=== PATIENT | female | born 1950 | race Caucasian/White ===

== ENCOUNTER → 2016-07-27 | Outpatient (CLI) | payer MEDICARE, MEDICAID ==
[~2016-07-27] MED LIST: CALC-794 PO; PANT40TA2 PO; POTA2TAB15 PO; SUCR1TAB36 PO
--- OUTSIDE RECORDS SUMMARY | 2016-07-27 10:58 | XMS REPORT | Continuity of Care Document ---
Author Author [facility] Organization [facility] Address Unknown Phone Unavailable Care Team Providers Care Central Supply Technician Name Role Phone PCP Unavailable Source Comments Some departments are not documenting in the electronic medical record. If you do not see the information that you expected, contact Release of Information in the Health Information Management department at [phone] for further assistance in locating additional records.[facility] Active Allergies and Adverse Reactions No Known Allergies Current Medications No known medications Active Problems Problem Noted Date Nuclear sclerotic cataract of both eyes 03/26/2015 Last Assessment & Plan: Visually significant OD > OS Proceed with CE/IOL, [facility], Brown OD first, concern for aniso following, can evaluate and determine need for OS Patient would like to follow-up with Dr. Farrell for post-op visits due to distance of 2.5 hours. Social History Tobacco Use Types Packs/Day Years Used Date Never Smoker Smokeless Tobacco: Never Used Alcohol Use Drinks/Week oz/Week Comments No Plan of Care Health Maintenance Due Date Last Done Comments Physical (Comprehensive) 1957 Exam Pertussis Vaccine 1961 Tetanus Vaccine 09/09/1967 Cervical Cancer Screening 09/09/1971 Breast Cancer Screening 1990 Colorectal Cancer 2000 Screening Shingles Vaccine 2010 Osteoporosis Screening 09/09/2015 Prevnar/Pneumovax (#1) 09/09/2015 Influenza Vaccine 02/23/2016 Results from Last 3 Months Not on file
--- NOTE | 2016-07-27 12:53 | Diagnostic Imaging Report ---
PROCEDURE: MRI left upper extremity without contrast. TECHNIQUE: Multiplanar, multisequence non contrast-enhanced MRI of the left upper extremity was accomplished. INDICATION: Shoulder pain. COMPARISON: There are no previous exams available for comparison. FINDINGS: On the T2 fat-saturated coronal series, there is a full-thickness tear of the rotator cuff. Most of the supraspinatus muscle has been retracted to the 11 o'clock position of the humeral head. There is a small amount of supraspinatus muscle still attached posteriorly to the rotator cuff. Furthermore, there is considerable hypertrophy of the acromioclavicular joint and this does result in narrowing of torn supraspinatus muscle. There is also fluid both within the joint and about the joint indicating that there is an element of inflammation present. The biceps tendon and subscapularis tendon are intact. However on the coronal images, the inferior glenohumeral ligament is not well visualized but I am not certain that it is torn. The labrum is thinned posteriorly and most likely torn on a degenerative basis. There is no abnormal signal arising from the osseous structures to suggest bone edema or fracture. There is a small joint effusion present. There is also small amount of fluid in the bursa anterior to the shoulder joint. When compared to the previous MRI RIGHT shoulder exam of 01/13/2016, the findings of this exam are quite similar. IMPRESSION: 1. There is a full-thickness tear of the rotator cuff with retraction of most of the supraspinatus muscle. 2. There is considerable hypertrophy of the acromioclavicular joint and this does result in narrowing of the outlet for the supraspinatus muscle. The fluid both around the acromioclavicular joint and within the joint does suggest that there is also an element of inflammation present. 3. The labrum is thinned posteriorly and most likely torn on a degenerative basis. 4. There is no evidence for an acute bony abnormality. 5. There is a small joint effusion and some fluid in the bursa anterior to the shoulder joint. Dictated by: Dictated on workstation # [id number]
== END ==
LOC: RAD 10:54
PROVIDERS: ATTEND Nurse Practitioner
DX: M75.122 Complete rotator cuff tear or rupture of left shoulder, not specified as traumatic (principal)
CPT/HCPCS: 73221

== ENCOUNTER 2017-03-30 09:24 | Emergency (ER) | payer MEDICARE, MEDICAID ==
[~2017-03-30] VITALS: Ht 160 cm; Wt 59.0 kg
--- OUTSIDE RECORDS SUMMARY | 2017-03-30 09:29 | XMS REPORT ---
Author YUE Fontanez Organization [employer] Address Unknown Phone Unavailable Care Team Providers Care Portable Track Crew Chief Name Role Phone YUE MADERA CP Unavailable Allergies No Known Allergies Problems Problem Type Condition ICD-9 Code Onset Dates Condition Status Problem Infected dental carries 521.09 Active Problem Anxiety 300.00 Active Problem Well woman exam V70.0 Active Problem Dizziness 780.4 Active Problem Gastritis 535.50 Active Problem Restless legs syndrome 333.94 Active Medications Medication Code System Code Instructions Start Date End Date Status Dosage Cipro [facility] [address]-67 500 MG Orally Twice a day Mar 08, 2015 Mar 18, 2015 1 tablet Results No Known Results Summary Purpose [employer] Submission
--- OUTSIDE RECORDS SUMMARY | 2017-03-30 09:29 | XMS REPORT ---
Author YUE Fontanez Organization [employer] Address Unknown Phone Unavailable Care Team Providers Care Thermometer Tester Name Role Phone YUE MADERA CP Unavailable Allergies, Adverse Reactions, Alerts Substance Reaction Event Type N.K.D.A. Info Not Available Non Drug Allergy Problems Problem Type Condition Code Onset Dates Condition Status Assessment Right shoulder pain M25.511 Active Problem Osteoarthritis M19.90 Active Medications Medication Code System Code Instructions Start Date End Date Status Dosage Potassium Gluconate [facility] [address] 550 MG Orally Once a day 1 tablet Calcium + D [facility] [address]67[address] 500-1000-40 MG-UNT-MCG Orally not defined Tylenol Arthritis Pain [facility] [address]-99 650 MG Orally every 8 hrs Jun 02, 2015 1 tablet as needed Naprosyn [facility] [address]-51 500 MG Orally every 12 hrs October 14, 2015 1 tablet as needed Procedures Procedure Coding System Code Date Office Visit, Est Pt., Level 4 CPT-4 57288 October 14, 2015 X-RAY EXAM OF SHOULDER CPT-4 16781 October 14, 2015 Vital Signs Date/Time: October 14, 2015 Temperature 97.8 F Weight 133.8 lbs Height 62.0 in BMI 24.47 Index Blood Pressure Diastolic 74 mmHg Blood Pressure Systolic 104 mmHg Cardiac Monitoring Heart Rate 70 bpm Results Name Result Date Reference Range Unit Abnormality Flag Xray : Shoulder, Right 2 view (IN HOUSE) Summary Purpose [employer] Submission
--- OUTSIDE RECORDS SUMMARY | 2017-03-30 09:29 | XMS REPORT ---
Author YUE Fontanez Organization [employer] Address Unknown Phone Unavailable Care Team Providers Care Grade School Teacher Name Role Phone YUE MADERA Unavailable Allergies No Known Allergies Problems Problem Type Condition Code Onset Dates Condition Status Assessment Nodule of chest wall R22.2 Active Problem Osteoarthritis M19.90 Active Medications No Known Medications Results No Known Results Summary Purpose [employer] Submission
--- OUTSIDE RECORDS SUMMARY | 2017-03-30 09:29 | XMS REPORT ---
Author YUE Fontanez [facility] [employer] Address Unknown Phone Unavailable Care Team Providers Care Staff Accountant Name Role Phone YUE MADERA CP Unavailable Allergies, Adverse Reactions, Alerts Substance Reaction Event Type N.K.D.A. Info Not Available Non Drug Allergy Problems Problem Type Condition Code Onset Dates Condition Status Problem Lung mass R91.8 Active Problem Osteoarthritis M19.90 Active Problem Right shoulder pain, unspecified chronicity M25.511 Active Assessment Dizziness R42 Active Assessment Bronchitis J40 Active Assessment Chest wall pain R07.89 Active Medications Medication Code System Code Instructions Start Date End Date Status Dosage Azithromycin [facility] [address]-23 250 MG Orally Once a day May 15, 2016 May 20, 2016 2 tablets on the first day, then 1 tablet daily for 4 days Albuterol Sulfate HFA [facility] [address]-37 108 (90 Base) MCG/ACT Inhalation every 4 hrs May 15, 2016 2 puffs as needed Calcium + D [facility] [address]94-[address] 500-1000-40 MG-UNT-MCG Orally not defined Tramadol HCl [facility] [address]-99 50 mg Orally 3 times a day May 15, 2016 May 20, 2016 1 tablet as needed Meclizine HCl [facility] [address]-94 25 MG Orally 3 times a day May 15, 2016 1 tablet as needed Sucralfate [facility] [address]-33 1 GM Orally Four times a day 1 tablet on an empty stomach Pantoprazole Sodium [facility] [address]-59 40 MG Orally Once a day 1 tablet Procedures Procedure Coding System Code Date MEASURE BLOOD OXYGEN LEVEL CPT-4 07163 May 15, 2016 [facility] CPT-4 NOBLL May 15, 2016 NEB/MDI RX INITIAL CPT-4 08310 May 15, 2016 Office Visit, Est Pt., Level 3 CPT-4 51695 May 15, 2016 [facility]MERLY [facility], [facility] VISIT ESTABLISHED PATIENT CPT-4 G0467 May 15, 2016 VENIPUNCT, ROUTINE* CPT-4 65349 May 15, 2016 DEXAMETHASONE 4MG/ML (PER 1 MG) CPT-4 J1100 May 15, 2016 CHEST X-RAY CPT-4 36467 May 15, 2016 DEPO MEDROL 40 MG/ML CPT-4 J1030 May 15, 2016 THER/PROPH/DIAG INJ, SC/IM CPT-4 37620 May 15, 2016 Vital Signs Date/Time: May 15, 2016 Cardiac Monitoring Heart Rate 64 bpm Weight 133.9 lbs Height 62.0 in BMI 24.49 Index Oximetry 97 % Blood Pressure Diastolic 62 mmHg Blood Pressure Systolic 110 mmHg Results Name Result Date Reference Range Unit Abnormality Flag Xray : Chest (IN HOUSE) MYCOPLASMA, IgM ----M pneumoniae IgM Abs <770 [id number] 0-769 U/mL ROUTINE VENIPUNCTURE NEBULIZER TREATMENT CBC ----RDW 13.8 03112012 12.3-15.4 % ----MCHC 31.9 02505618 31.5-35.7 g/dL ----MCH 29.8 [id number] 26.6-33.0 pg ----MCV 94 63812740 79-97 fL ----Hematocrit 41.1 32507603 34.0-46.6 % ----Hemoglobin 13.1 68940531 11.1-15.9 g/dL ----Immature Granulocytes 0 71288121 % ----RBC 4.39 10110811 3.77-5.28 x10E6/uL ----WBC 12.6 [id number] 3.4-10.8 x10E3/uL H ----Immature Grans (Abs) 0.0 [id number] 0.0-0.1 x10E3/uL ----Eos (Absolute) 0.1 [id number] 0.0-0.4 x10E3/uL ----Basos 0 74312726 % ----Baso (Absolute) 0.0 [id number] 0.0-0.2 x10E3/uL ----Neutrophils (Absolute) 9.7 [id number] 1.4-7.0 x10E3/uL H ----Lymphs (Absolute) 1.9 [id number] 0.7-3.1 x10E3/uL ----Monocytes(Absolute) 0.9 [id number] 0.1-0.9 x10E3/uL ----Neutrophils 77 83045459 % ----Lymphs 15 60705357 % ----Monocytes 7 07835001 % ----Eos 1 12879416 % ----Platelets 302 [id number] 150-379 x10E3/uL Summary Purpose [employer]ClinicalWorks Submission
--- OUTSIDE RECORDS SUMMARY | 2017-03-30 09:29 | XMS REPORT ---
Author YUE Fontanez Organization [employer] Address Unknown Phone Unavailable Care Team Providers Care Machine Fixer Name Role Phone YUE MADERA CP Unavailable Allergies, Adverse Reactions, Alerts Substance Reaction Event Type N.K.D.A. Info Not Available Non Drug Allergy Problems Problem Type Condition Code Onset Dates Condition Status Assessment Sinus pressure J34.89 Active Assessment Osteoarthritis M19.90 Active Problem Osteoarthritis M19.90 Active Medications Medication Code System Code Instructions Start Date End Date Status Dosage Mucinex [facility] [address]-39 600 MG Orally every 12 hrs Jun 02, 2015 1 tablet as needed Pepcid [facility] [address]-28 20 MG Orally Once a day January 19, 2015 1 tablet at bedtime Tylenol Arthritis Pain [facility] [address]-91 650 MG Orally every 8 hrs Jun 02, 2015 1 tablet as needed Procedures Procedure Coding System Code Date Office Visit, Est Pt., Level 4 CPT-4 32236 Jun 02, 2015 Vital Signs Date/Time: Jun 02, 2015 Temperature 96.7 F Weight 132.3 lbs Height 62.0 in BMI 24.20 Index Blood Pressure Diastolic 60 mmHg Blood Pressure Systolic 122 mmHg Cardiac Monitoring Heart Rate 68 bpm Results No Known Results Summary Purpose [employer] Submission
--- OUTSIDE RECORDS SUMMARY | 2017-03-30 09:29 | XMS REPORT ---
Author YUE Fontanez Organization [employer] Address Unknown Phone Unavailable Care Team Providers Care Manufacturing Technology Professor Name Role Phone YUE MADERA CP Unavailable Allergies No Known Allergies Problems Problem Type Condition Code Onset Dates Condition Status Problem Infected dental carries 521.09 Active Problem Anxiety 300.00 Active Problem Well woman exam V70.0 Active Problem Dizziness 780.4 Active Problem Gastritis 535.50 Active Problem Restless legs syndrome 333.94 Active Medications No Known Medications Results No Known Results Summary Purpose [employer] Submission
--- OUTSIDE RECORDS SUMMARY | 2017-03-30 09:29 | XMS REPORT ---
Author Author RODRIGO RAMIRES Organization [employer] Address Unknown Phone Unavailable Care Team Providers Care Sedimentationist Name Role Phone RODRIGO RAMIRES CP Unavailable Allergies No Known Allergies Problems Problem Type Condition ICD-9 Code Onset Dates Condition Status Problem Gastritis 535.50 Active Problem Restless legs syndrome 333.94 Active Problem Anxiety 300.00 Active Problem Dizziness 780.4 Active Assessment Dental examination V72.2 Active Medications No Known Medications Procedures Procedure Coding System Code Date INTRAORL-PERIAPICAL 1 FILM 18857 CPT-4 D0220 Jan 27, 2015 INTRAORL-PERIAPICAL EA ADD FILM CPT-4 D0230 Jan 27, 2015 LTD ORAL EVALUATION - PROBLEM FOCUS CPT-4 D0140 Jan 27, 2015 Results No Known Results Summary Purpose [employer] Submission
--- OUTSIDE RECORDS SUMMARY | 2017-03-30 09:29 | XMS REPORT ---
Author Author YUE MADERA Organization [facility] Address [address] [place] [address] Care Team Providers Care Manager Pediatric Name Role Phone YUE MADERA Unavailable PROBLEMS Type Condition ICD9-CM Code [id number] Code Onset Dates Condition Status SNOMED Code Problem Lung mass R91.8 Active 898869398 Problem Right shoulder pain, unspecified chronicity M25.511 Active 98628533 Problem Osteoarthritis M19.90 Active 558301317 ALLERGIES No Information SOCIAL HISTORY Never Assessed PLAN OF CARE VITAL SIGNS MEDICATIONS Medication Instructions Dosage Frequency Start Date End Date Duration Status Azithromycin 250 MG Orally Once a day 2 tablets on the first day, then 1 tablet daily for 4 days 24h Jul, Jul, 5 day(s) Active RESULTS No Results PROCEDURES No Known procedures IMMUNIZATIONS No Known Immunizations MEDICAL (GENERAL) HISTORY Type Description Date Medical History restless leg syndrome Surgical History teeth removed and filed bones in mouth Surgical History Right rotary cuff repair Feb 21, 2016
--- OUTSIDE RECORDS SUMMARY | 2017-03-30 09:29 | XMS REPORT ---
Author YUE Fontanez [facility] [employer] Address Unknown Phone Unavailable Care Team Providers Care Refinery Technician Name Role Phone YUE MADERA Unavailable Allergies, Adverse Reactions, Alerts Substance Reaction Event Type N.K.D.A. Info Not Available Non Drug Allergy Problems Problem Type Condition ICD-9 Code Onset Dates Condition Status Assessment Infected dental carries 521.09 Active Assessment Anxiety 300.00 Active Assessment Restless legs syndrome 333.94 Active Problem Infected dental carries 521.09 Active Problem Anxiety 300.00 Active Problem Well woman exam V70.0 Active Problem Dizziness 780.4 Active Assessment Well woman exam V70.0 Active Problem Gastritis 535.50 Active Problem Restless legs syndrome 333.94 Active Medications Medication Code System Code Instructions Start Date End Date Status Dosage Potassium Gluconate [facility] [address] 550 MG Orally Once a day [address] [facility] [address]-36 20 MG Orally Once a day January 19, 2015 1 tablet at bedtime Requip [facility] [address]-51 2 MG Orally Once a day December 21, 2014 1 tablet 1 to 3 hours before bedtime Acetaminophen [facility] [address]-81 325 MG Orally 2 times a day 2 tablets as needed Calcium + D [facility] [address] 500-1000-40 MG-UNT-MCG Orally not defined Amoxicillin [facility] [address]-36 500 MG Orally 4 times a day Mar 03, 2015 Mar 10, 2015 1 tablet BusPIRone HCl [facility] [address]-39 10 MG Orally Twice a day January 19, 2015 0.5 tablet Procedures Procedure Coding System Code Date CULTURE, BACTERIA, OTHER CPT-4 22042 Mar 03, 2015 TEST FOR BLOOD, FECES CPT-4 13104 Mar 03, 2015 SPECIMEN HANDLING CPT-4 85650 Mar 03, 2015 Preventive Care Est Pt. Age 40-64 CPT-4 87452 Mar 03, 2015 Vital Signs Date/Time: Mar 03, 2015 Temperature 97.5 F Weight 140.6 lbs Height 62.0 in BMI 25.71 Index Blood Pressure Diastolic 78 mmHg Blood Pressure Systolic 144 mmHg Cardiac Monitoring Heart Rate 64 bpm Results Name Result Date Reference Range Unit Abnormality Flag HEMOCCULT (IN HOUSE) ----RESULTS negative [id number] ----Control + [id number] Summary Purpose [employer]ClinicalWorks Submission
--- OUTSIDE RECORDS SUMMARY | 2017-03-30 09:29 | XMS REPORT ---
Author Author MAURICE ROWAN Organization [facility] Address [address] [place] [address] Care Team Providers Care Paper Products Printer Name Role Phone MAURICE ROWAN Unavailable PROBLEMS Type Condition ICD9-CM Code [id number] Code Onset Dates Condition Status SNOMED Code Problem Right shoulder pain, unspecified chronicity M25.511 Active 55888816 Problem Lung mass R91.8 Active 563384873 Problem Osteoarthritis M19.90 Active 845566682 ALLERGIES Substance Reaction Event Type Date Status N.K.D.A. Unknown Non Drug Allergy May, Unknown SOCIAL HISTORY No smoking Hx information available PLAN OF CARE Activity Details Follow Up prn Reason: VITAL SIGNS Height 62.0 in 2016-06-15 Weight 133.4 lbs 2016-06-15 Temperature 99.7 degrees Fahrenheit 2016-06-15 Heart Rate 62 bpm 2016-06-15 Respiratory Rate 18 2016-06-15 BMI 24.40 kg/m2 2016-06-15 Blood pressure systolic 130 mmHg 2016-06-15 Blood pressure diastolic 72 mmHg 2016-06-15 MEDICATIONS Medication Instructions Dosage Frequency Start Date End Date Duration Status Calcium + D 500-1000-40 MG-UNT-MCG Active PredniSONE 20 MG Orally Once a day 2 tablet 24h May, May, 5 days Active Augmentin 875-125 MG Orally every 12 hrs 1 tablet 12h May, Jun, 10 day(s) Active Sucralfate 1 GM Orally Four times a day 1 tablet on an empty stomach 6h Active Coricidin D Active Pantoprazole Sodium 40 MG Orally Once a day 1 tablet 24h Active Albuterol Sulfate HFA 108 (90 Base) MCG/ACT Inhalation every 4 hrs 2 puffs as needed 4h Apr, Active Tylenol Arthritis Pain 650 MG Orally every 8 hrs 1 tablet as needed 8h May, Active Meclizine HCl 25 MG Orally 3 times a day 1 tablet as needed 8h Apr, 07 days Active Tramadol HCl 50 MG Orally every 6 hrs 1 tablet as needed 6h Active RESULTS No Results PROCEDURES Procedure Date Ordered Related Diagnosis Body Site [facility] VISIT ESTABLISHED PATIENT Jun 15, 2016 Office Visit, Est Pt., Level 3 Jun 15, 2016 IMMUNIZATIONS No Known Immunizations
--- OUTSIDE RECORDS SUMMARY | 2017-03-30 09:29 | XMS REPORT ---
Author YUE Fontanez Organization [employer] Address Unknown Phone Unavailable Care Team Providers Care Light Industrial Name Role Phone YUE MADERA Unavailable Allergies No Known Allergies Problems Problem Type Condition Code Onset Dates Condition Status Assessment Nodule of chest wall R22.2 Active Problem Osteoarthritis M19.90 Active Medications No Known Medications Results No Known Results Summary Purpose [employer]ClinicalWorks Submission
--- OUTSIDE RECORDS SUMMARY | 2017-03-30 09:29 | XMS REPORT ---
Author Author YUE MADERA Organization [facility] Address [address] [place] [address] Care Team Providers Care School Bus Mechanic Name Role Phone YUE MADERA Unavailable PROBLEMS Type Condition ICD9-CM Code [id number] Code Onset Dates Condition Status SNOMED Code Problem Lung mass R91.8 Active 182779156 Problem Right shoulder pain, unspecified chronicity M25.511 Active 69288671 Problem Osteoarthritis M19.90 Active 332897002 ALLERGIES No Information SOCIAL HISTORY Never Assessed PLAN OF CARE VITAL SIGNS MEDICATIONS Medication Instructions Dosage Frequency Start Date End Date Duration Status Azithromycin 250 MG Orally Once a day 2 tablets on the first day, then 1 tablet daily for 4 days 24h Jul, 5 day(s) Active RESULTS No Results PROCEDURES No Known procedures IMMUNIZATIONS No Known Immunizations MEDICAL (GENERAL) HISTORY Type Description Date Medical History restless leg syndrome Surgical History teeth removed and filed bones in mouth Surgical History Right rotary cuff repair Feb 21, 2016
--- OUTSIDE RECORDS SUMMARY | 2017-03-30 09:29 | XMS REPORT | Clinical Summary ---
Author Author [facility] Organization [facility] Address Unknown Phone Unavailable Care Team Providers Care Promotions Coordinator Name Role Phone PCP Unavailable Source Comments Some departments are not documenting in the electronic medical record. If you do not see the information that you expected, contact Release of Information in the Health Information Management department at [phone] for further assistance in locating additional records.[facility] Allergies No Known Allergies Current Medications No known [...] visits due to distance of 2.5 hours. Family History Medical History Relation Name Comments Cataract Father Blindness Paternal Grandmother Relation Name Status Comments Father Paternal Grandmother Social History Tobacco Use Types Packs/Day Years Used Date Never Smoker Smokeless Tobacco: Never Used Alcohol Use Drinks/Week oz/Week Comments No Sex Assigned at Date Recorded Not on file Last Filed Vital Signs Not on file Plan of Treatment Health Maintenance Due Date Last Done Comments HEPATITIS C SCREENING 1950 PHYSICAL (COMPREHENSIVE) 1957 EXAM PERTUSSIS VACCINE 1961 TETANUS VACCINE 09/09/1967 BREAST CANCER SCREENING 1990 COLORECTAL CANCER 2000 SCREENING SHINGLES VACCINE 2010 OSTEOPOROSIS SCREENING 09/09/2015 PREVNAR/PNEUMOVAX (#1) 09/09/2015 INFLUENZA VACCINE 03/24/2017 Results Not on filefrom Last 3 Months
--- OUTSIDE RECORDS SUMMARY | 2017-03-30 09:30 | XMS REPORT ---
Author YUE Fontanez Organization [employer] Address Unknown Phone Unavailable Care Team Providers Care Bulk Cooler Installer Name Role Phone YUE MADERA Unavailable Allergies No Known Allergies Problems Problem Type Condition Code Onset Dates Condition Status Problem Infected dental carries 521.09 Active Problem Anxiety 300.00 Active Problem Well woman exam V70.0 Active Problem Dizziness 780.4 Active Problem Gastritis 535.50 Active Problem Restless legs syndrome 333.94 Active Medications Medication Code System Code Instructions Start Date End Date Status Dosage Amoxicillin [facility] [address]-01 500 MG Orally qid Mar 31, 2015 1 tablet Results No Known Results Summary Purpose [employer]ClinicalWorks Submission
--- OUTSIDE RECORDS SUMMARY | 2017-03-30 09:30 | XMS REPORT ---
Author SHUKRI Mcneal [facility] eClinicalWorks Address Unknown Phone Unavailable Care Team Providers Care Fruit Harvester Machine Operator Name Role Phone SHUKRI COTTON CP Unavailable Allergies, Adverse Reactions, Alerts Substance Reaction Event Type N.K.D.A. Info Not Available Non Drug Allergy Problems Problem Type Condition Code Onset Dates Condition Status Problem Lung mass R91.8 Active Problem Osteoarthritis M19.90 Active Problem Right shoulder pain, unspecified chronicity M25.511 Active Assessment Chest wall pain R07.89 Active Medications Medication Code System Code Instructions Start Date End Date Status Dosage Pantoprazole Sodium [facility] [address]-91 40 MG Orally Once a day 1 tablet Sucralfate [facility] [address]-38 1 GM Orally Four times a day 1 tablet on an empty stomach Ketorolac Tromethamine [facility] [address]-29 10 MG Orally every 6 hrs May 11, 2016 May 16, 2016 1 tablet with food or milk as needed Calcium + D [facility] 12480-44168 500-1000-40 MG-UNT-MCG Orally not defined Procedures Procedure Coding System Code Date THER/PROPH/DIAG INJ, SC/IM CPT-4 95779 May 11, 2016 [facility] VISIT ESTABLISHED PATIENT CPT-4 G0467 May 11, 2016 TORADOL (IM) 60 MG/2ML (UP TO 15 MG) CPT-4 J1885 May 11, 2016 Office Visit, Est Pt., Level 3 CPT-4 82955 May 11, 2016 Vital Signs Date/Time: May 11, 2016 Cardiac Monitoring Heart Rate 62 bpm Weight 132.8 lbs Height 62.0 in BMI 24.29 Index Blood Pressure Diastolic 64 mmHg Blood Pressure Systolic 102 mmHg Results No Known Results Summary Purpose eClinicalWorks Submission
--- OUTSIDE RECORDS SUMMARY | 2017-03-30 09:30 | XMS REPORT ---
Author YUE Fontanez Organization eClinical[employer] Address Unknown Phone Unavailable Care Team Providers Care [employer] Membership Advisors Name Role Phone YUE MADERA CP Unavailable Allergies No Known Allergies Problems Problem Type Condition Code Onset Dates Condition Status Problem Infected dental carries 521.09 Active Problem Anxiety 300.00 Active Problem Well woman exam V70.0 Active Problem Dizziness 780.4 Active Problem Gastritis 535.50 Active Problem Restless legs syndrome 333.94 Active Medications Medication Code System Code Instructions Start Date End Date Status Dosage Amoxicillin [facility] [address]-15 500 MG Orally TID Apr 26, 2015 1 tab Results No Known Results Summary Purpose eClinicalWorks Submission
--- OUTSIDE RECORDS SUMMARY | 2017-03-30 09:30 | XMS REPORT | Continuity of Care Document ---
Author Author [facility] Organization [facility] Address Unknown Phone Unavailable Allergies Active Description Code Type Severity Reaction Onset Reported/Identified Relationship to Patient Clinical Status Yes No Allergy Information Available [id number] Drug Allergy Unknown N/A 10/27/2015 Yes No Known Drug Allergies [id number] Drug Allergy Unknown N/ A 11/25/2015 Medications Problems Date Dx Coded Attending Type Code Diagnosis Diagnosed By 03/17/2015 YUE MADERA ROLLER STITCHER Ot V76.12 03/17/2015 YUE MADERA ROLLER STITCHER Ot V76.12 10/26/2015 YUE MADERA ROLLER STITCHER Ot V76.12 OTH SCREEN MAMMO-MALIGN NEOPLASM OF J CARLOS 10/27/2015 YUE MADERA ROLLER STITCHER Ot V76.12 OTH SCREEN MAMMO-MALIGN NEOPLASM OF J CARLOS 10/27/2015 YUE MADERA ROLLER STITCHER Ot R22.2 LOCALIZED SWELLING, MASS AND LUMP, TRUNK 10/28/2015 YUE MADERA ROLLER STITCHER Ot R22.2 LOCALIZED SWELLING, MASS AND LUMP, TRUNK 10/28/2015 YUE MADERA ROLLER STITCHER Ot R22.2 LOCALIZED SWELLING, MASS AND LUMP, TRUNK 11/17/2015 YEU MADERA ROLLER STITCHER Ot R22.2 LOCALIZED SWELLING, MASS AND LUMP, TRUNK 11/23/2015 DESTINEE MAY MD Ot Z01.818 ENCOUNTER FOR OTHER PREPROCEDURAL EXAMIN 11/28/2015 DESTINEE MAY MD Ot K21.0 GASTRO-ESOPHAGEAL REFLUX DISEASE WITH ES 11/28/2015 DESTINEE MAY MD Ot K25.9 GASTRIC ULCER, UNSP ACUTE OR CHRONIC, 11/28/2015 DESTINEE MAY MD Ot K29.70 GASTRITIS, UNSPECIFIED, WITHOUT BLEEDING 11/28/2015 DESTINEE MAY MD, Ot K44.9 DIAPHRAGMATIC HERNIA WITHOUT OBSTRUCTION 11/28/2015 DESTINEE MAY MD Ot K57.30 DVRTCLOS OF LG INT W/O PERFORATION OR AB 11/28/2015 DESTINEE MAY MD Ot K64.1 SECOND DEGREE HEMORRHOIDS 11/28/2015 DESTINEE MAY MD Ot Z12.11 ENCOUNTER FOR SCREENING FOR MALIGNANT NE 11/28/2015 DESTINEE MAY MD, Ot Z80.0 FAMILY HISTORY OF MALIGNANT NEOPLASM OF 11/28/2015 YUE MADERA ROLLER STITCHER Ot R22.2 LOCALIZED SWELLING, MASS AND LUMP, TRUNK 11/29/2015 DESTINEE MAY MD Ot K21.0 GASTRO-ESOPHAGEAL REFLUX DISEASE WITH ES 11/29/2015 DESTINEE MAY MD Ot K25.9 GASTRIC ULCER, UNSP ACUTE OR CHRONIC, 11/29/2015 DESTINEE MAY MD Ot K29.70 GASTRITIS, UNSPECIFIED, WITHOUT BLEEDING 11/29/2015 DESTINEE MAY MD Ot K44.9 DIAPHRAGMATIC HERNIA WITHOUT OBSTRUCTION 11/29/2015 DESTINEE MAY MD Ot K57.30 DVRTCLOS OF LG INT W/O PERFORATION OR AB 11/29/2015 DESTINEE MAY MD Ot K64.1 SECOND DEGREE HEMORRHOIDS 11/29/2015 DESTINEE MAY MD Ot Z12.11 ENCOUNTER FOR SCREENING FOR MALIGNANT NE 11/29/2015 DESTINEE MAY MD Ot Z80.0 FAMILY HISTORY OF MALIGNANT NEOPLASM OF 11/29/2015 DESTINEE MAY MD Ot K21.0 GASTRO-ESOPHAGEAL REFLUX DISEASE WITH ES 11/29/2015 DESTINEE MAY MD Ot K25.9 GASTRIC ULCER, UNSP ACUTE OR CHRONIC, 11/29/2015 DESTINEE MAY MD Ot K29.70 GASTRITIS, UNSPECIFIED, WITHOUT BLEEDING 11/29/2015 DESTINEE MAY MD Ot K44.9 DIAPHRAGMATIC HERNIA WITHOUT OBSTRUCTION 11/29/2015 DESTINEE MAY MD Ot K57.30 DVRTCLOS OF LG INT W/O PERFORATION OR AB 11/29/2015 DESTINEE MAY MD Ot K64.1 SECOND DEGREE HEMORRHOIDS 11/29/2015 DESTINEE MAY MD Ot Z12.11 ENCOUNTER FOR SCREENING FOR MALIGNANT NE 11/29/2015 KIDO MD, TAKAAKI Ot Z80.0 FAMILY HISTORY OF MALIGNANT NEOPLASM OF 01/13/2016 YUE MADERA PEYTON Ot V76.12 OTH SCREEN MAMMO-MALIGN NEOPLASM OF J CARLOS 01/13/2016 YUE MADERA PEYTON Ot R22.2 LOCALIZED SWELLING, MASS AND LUMP, TRUNK 01/13/2016 DESTINEE MAY MD, Ot K21.0 GASTRO-ESOPHAGEAL REFLUX DISEASE WITH ES 01/13/2016 DESTINEE MAY MD Ot K25.9 GASTRIC ULCER, UNSP ACUTE OR CHRONIC, 01/13/2016 DESTINEE MAY MD Ot K29.70 GASTRITIS, UNSPECIFIED, WITHOUT BLEEDING 01/13/2016 DESTINEE MAY MD, Ot K44.9 DIAPHRAGMATIC HERNIA WITHOUT OBSTRUCTION 01/13/2016 DESTINEE MAY MD Ot K57.30 DVRTCLOS OF LG INT W/O PERFORATION OR AB 01/13/2016 DESTINEE MAY MD Ot K64.1 SECOND DEGREE HEMORRHOIDS 01/13/2016 DESTINEE MAY MD, Ot Z12.11 ENCOUNTER FOR SCREENING FOR MALIGNANT NE 01/13/2016 DESTINEE MAY MD Ot Z80.0 FAMILY HISTORY OF MALIGNANT NEOPLASM OF 01/16/2016 PURNIMA ROMERO Ot M75.111 INCOMPLETE ROTATR-CUFF TEAR/RUPTR OF R S 01/16/2016 PURNIMA ROMERO Ot M75.112 INCOMPLETE ROTATR-CUFF TEAR/RUPTR OF L S 02/02/2016 DESTINEE MAY MD Ot K21.0 GASTRO-ESOPHAGEAL REFLUX DISEASE WITH ES 02/02/2016 DESTINEE MAY MD, Ot K25.9 GASTRIC ULCER, UNSP ACUTE OR CHRONIC, 02/02/2016 DESTINEE MAY MD, Ot K29.70 GASTRITIS, UNSPECIFIED, WITHOUT BLEEDING 02/02/2016 DESTINEE MAY MD, Ot K44.9 DIAPHRAGMATIC HERNIA WITHOUT OBSTRUCTION 02/02/2016 DESTINEE MAY MD Ot K57.30 DVRTCLOS OF LG INT W/O PERFORATION OR AB 02/02/2016 DESTINEE MAY MD Ot K64.1 SECOND DEGREE HEMORRHOIDS 02/02/2016 DESTINEE MAY MD Ot Z12.11 ENCOUNTER FOR SCREENING FOR MALIGNANT NE 02/02/2016 DESTINEE MAY MD, Ot Z80.0 FAMILY HISTORY OF MALIGNANT NEOPLASM OF 02/07/2016 PURNIAM ROMERO Ot M75.111 INCOMPLETE ROTATR-CUFF TEAR/RUPTR OF R S 02/07/2016 PURNIMA ROMERO Ot M75.112 INCOMPLETE ROTATR-CUFF TEAR/RUPTR OF L S 02/10/2016 DESTINEE MAY MD Ot K21.0 GASTRO-ESOPHAGEAL REFLUX DISEASE WITH ES 02/10/2016 DESTINEE MAY MD Ot K25.9 GASTRIC ULCER, UNSP ACUTE OR CHRONIC, 02/10/2016 DESTINEE MAY MD, Ot K29.70 GASTRITIS, UNSPECIFIED, WITHOUT BLEEDING 02/10/2016 DESTINEE MAY MD, Ot K44.9 DIAPHRAGMATIC HERNIA WITHOUT OBSTRUCTION 02/10/2016 DESTINEE MAY MD, Ot K57.30 DVRTCLOS OF LG INT W/O PERFORATION OR AB 02/10/2016 DESTINEE MAY MD Ot K64.1 SECOND DEGREE HEMORRHOIDS 02/10/2016 DESTINEE MAY MD Ot Z12.11 ENCOUNTER FOR SCREENING FOR MALIGNANT NE 02/10/2016 DESTINEE MAY MD, Ot Z80.0 FAMILY HISTORY OF MALIGNANT NEOPLASM OF 02/20/2016 PURNIMA ROMERO Ot M75.111 INCOMPLETE ROTATR-CUFF TEAR/RUPTR OF R S 02/20/2016 PURNIMA ROMERO Ot M75.112 INCOMPLETE ROTATR-CUFF TEAR/RUPTR OF L S 07/27/2016 YUE MADERA Ot V76.12 OTH SCREEN MAMMO-MALIGN NEOPLASM OF J CARLOS 07/27/2016 YUE MADERA Ot R22.2 LOCALIZED SWELLING, MASS AND LUMP, TRUNK 07/27/2016 DESTINEE MAY MD Ot K21.0 GASTRO-ESOPHAGEAL REFLUX DISEASE WITH ES 07/27/2016 DESTINEE MAY MD, Ot K25.9 GASTRIC ULCER, UNSP ACUTE OR CHRONIC, 07/27/2016 DESTINEE MAY MD Ot K29.70 GASTRITIS, UNSPECIFIED, WITHOUT BLEEDING 07/27/2016 DESTINEE MAY MD Ot K44.9 DIAPHRAGMATIC HERNIA WITHOUT OBSTRUCTION 07/27/2016 DESTINEE MAY MD Ot K57.30 DVRTCLOS OF LG INT W/O PERFORATION OR AB 07/27/2016 DESTINEE MAY MD Ot K64.1 SECOND DEGREE HEMORRHOIDS 07/27/2016 DESTINEE MAY MD Ot Z12.11 ENCOUNTER FOR SCREENING FOR MALIGNANT NE 07/27/2016 DESTINEE MAY MD Ot Z80.0 FAMILY HISTORY OF MALIGNANT NEOPLASM OF 07/27/2016 PURNIMA ROMERO Ot M75.111 INCOMPLETE ROTATR-CUFF TEAR/RUPTR OF R S 07/27/2016 PURNIMA ROMERO Ot M75.112 INCOMPLETE ROTATR-CUFF TEAR/RUPTR OF L S 08/02/2016 PURNIMA ROMERO Ot M75.122 COMPLETE ROTATR-CUFF TEAR/RUPTR OF LEFT 08/23/2016 PURNIMA ROMERO Ot M75.122 COMPLETE ROTATR-CUFF TEAR/RUPTR OF LEFT Procedures Results Encounters ACCT No. Visit Date/Time Discharge Status Pt. Type Provider Facility Loc./Unit Complaint [id number] 07/27/2016 10:54:00 2016 23:59:59 CLS Outpatient PURNIMA ROMERO [facility] RAD COMPLETE RTC [id number] 01/13/2016 09:57:00 2015 23:59:59 CLS Outpatient PURNIMA ROMERO [facility] RAD ROTATOR CUFF TEAR RT [id number] 11/25/2015 11:39:00 2015 23:59:59 CLS Outpatient DESTINEE MAY MD [facility] SDC SCREENING,ESOPHAGEAL MASS [id number] 11/23/2015 10:10:00 2015 12:12:00 DIS Outpatient DESTINEE MAY MD [facility] PREOP SCREENING,ESOPHAGEAL MASS [id number] 10/27/2015 09:25:00 2015 23:59:59 CLS Outpatient YUE MADERAP [facility] RAD NODULE OF CHEST WALL [id number] 03/11/2015 11:28:00 2014 23:59:59 CLS Outpatient YUE MADERAP [facility] RAD SCREENING
--- NOTE | 2017-03-30 10:14 | Diagnostic Imaging Report ---
EXAMINATION: Left knee, 3 views. COMPARISON: None. HISTORY: 66-year-old female, fall. Left knee pain. FINDINGS: There is no identified acute fracture. The bones appear demineralized. There is no definite large knee joint effusion given the obliquity of imaging. There is no pronounced joint space loss. There is no radiopaque foreign body. IMPRESSION: No identified acute bony abnormality of the left knee. Dictated by: Dictated on workstation # [id number]
[2017-03-30] MEDS ORDERED: KETOROLAC 60 MG/2 ML VIAL IM ONE (10:15)
--- NOTE | 2017-03-30 10:42 | ED Lower Extremity ---
General Chief Complaint: Lower Extremity Stated Complaint: L KNEE INJ, FALL Nursing Triage Note: PT REPORTS SHE HAS CHRONIC L KNEE "PROBLEMS". SHE STATES IT GIVES OUT ON HER CAUSING HER TO FALL. SHE REPORTS THAT SHE FELL LAST NIGHT WHEN HER KNEE GAVE OUT AND SHE TWISTED THE L KNEE. SHE IS C/O WORSENING PAIN. Nursing Sepsis Screen: No Definite Risk Source: patient Exam Limitations: no limitations Allergies and Home Medications Allergies Coded Allergies: No Known Drug Allergies (Verified , 11/25/15) Home Medications Calcium Carb & Citrate/Vit D3 1 Each Tablet.er, 1 EACH PO DAILY, (Reported) Pantoprazole Sodium 40 Mg Tablet.dr, 40 MG PO DAILY, #90 Prescribed by: DESTINEE MAY on 11/25/15 1513 Potassium Gluconate 500 Mg Tablet, 500 MG PO DAILY, (Reported) Sucralfate 1 Gm Tablet, 1 GM PO ACHS, #120 Prescribed by: DESTINEE MAY on 11/25/15 1514 Past Epcucqe-Dvqrzi-Gbpctl Hx Patient Social History Alcohol Use: Denies Use Recreational Drug Use: No Smoking Status: Never a Smoker 2nd Hand Smoke Exposure: No Recent Foreign Travel: No Contact w/Someone Who Travel: No Recent Infectious Disease Expo: No Recent Hopitalizations: No Physical Abuse: No Sexual Abuse: No Seasonal Allergies Seasonal Allergies: No Surgeries History of Surgeries: Yes (TEETH PULLED) Surgeries: Orthopedic Respiratory History of Respiratory Disorde: No Cardiovascular History of Cardiac Disorders: No Gastrointestinal History of Gastrointestinal Di: No Musculoskeletal History of Musculoskeletal Dis: Yes (SHOULDER PAIN) Endocrine History of Endocrine Disorders: No Psychosocial Suicide Risk Score: 0 Physical Exam Vital Signs Vital Sign - Last 12Hours 03/30/17 09:36 Temp 96.5 Pulse 70 Resp 18 B/P (MAP) 133/75 Pulse Ox 99 O2 Delivery Room Air Capillary Refill : Less Than 3 Seconds Progress/Results/Core Measures Results/Orders My Orders Orders - CLAYTON CASILLAS MD Knee, Left, 3 Views (03/30/17 10:00) Ketorolac Injection (Toradol Injection) (03/30/17 10:15) Medications Given in ED Current Medications Medications Dose Ordered Sig/Maria Guadalupe Route Start Time Stop Time Status Last Admin Dose Admin Ketorolac Tromethamine 60 mg ONCE ONCE IM 03/30/17 10:15 03/30/17 10:16 DC 03/30/17 10:46 60 MG Vital Signs/I&O Vital Sign - Last 12Hours 03/30/17 09:36 Temp 96.5 Pulse 70 Resp 18 B/P (MAP) 133/75 Pulse Ox 99 O2 Delivery Room Air Blood Pressure Mean: 94 Progress Note : Progress Note X-rays revealed no bony injury or dislocation. Patient was fitted with a knee immobilizer and she was able to ambulate with the immobilizer on. She has crutches at home which she will use if necessary. She was given a Toradol injection for regimen of her pain while in the ER. She is an established patient of Dr. Hollins and will follow-up with him and next week. Diagnostic Imaging Diagonstic Imaging: Xray Plain Films/CT/US/NM/MRI: knee Comments Knee x-ray viewed by me and report reviewed. See report below: NAME: MARTIN ORDONEZ MED REC#: [id number] PT STATUS: REG ER : 1950 PHYSICIAN: CLAYTON CASILLAS MD ADMIT DATE: 03/30/17/ER Draft Date of Exam:03/30/17 KNEE, LEFT, 3 VIEWS EXAMINATION: Left knee, 3 views. COMPARISON: None. HISTORY: 66-year-old female, fall. Left knee pain. FINDINGS: There is no identified acute fracture. The bones appear demineralized. There is no definite large knee joint effusion given the obliquity of imaging. There is no pronounced joint space loss. There is no radiopaque foreign body. IMPRESSION: No identified acute bony abnormality of the left knee. Dictated on workstation # [id number] Dict: 03/30/17 1012 Trans: 03/30/17 1014 [facility] [id number] Interpreted by: MARYJO COURTNEY MD Departure Impression Impression: Primary Impression: Left knee injury Qualified Codes: S89.92XA - Unspecified injury of left lower leg, initial encounter Disposition: HOME, SELF-CARE Condition: Improved Departure-Patient Inst. Decision time for Depature: 10:45 Referrals: [facility] (PCP) Primary Care Physician YUE MADERA (Family) Primary Care Physician Patient Instructions: Knee Sprain (DC) Add. Discharge Instructions: You may continue using ibuprofen up to 600 mg every 6 hours as needed for pain. Add hydrocodone as prescribed for pain not controlled by ibuprofen. Do not drive or operate machinery while on hydrocodone. Use your knee immobilizer as necessary for support. Use crutches to help you with walking as needed. Icing your knee in 20 minute intervals may be helpful in reducing pain and swelling. An Nain wrap for compression may also be helpful. Follow-up with Dr. Hollins as soon as possible. Return to the emergency room if symptoms worsen. All discharge instructions reviewed with patient and/or family. Voiced understanding. Scripts Hydrocodone/Acetaminophen (Hydrocodon -Acetaminophen 5-325) 1 Each Tablet 1 EACH PO Q4H Y for PAIN, #15 TAB Prov: CLAYTON CASILLAS MD 03/30/17 Copy Copies To 1: MIGUELITO HOLLINS MD, JOSHUA T MD Mar 30, 2017 10:42
[2017-03-30] MEDS ORDERED: HYDR-3812 PO (11:09)
[2017-03-30 11:15] VITALS: BP 133/75
== END 2017-03-30 11:15 | disposition home or self-care (01) ==
LOC: EDUNIT# 09:24 → ER 09:25
DX: S89.92XA Unspecified injury of left lower leg, initial encounter (principal); X50.0XXA Overexertion from strenuous movement or load, initial encounter
CPT/HCPCS: 73562; 96372; 99283; 99284

== ENCOUNTER → 2017-04-03 | Outpatient (CLI) | payer MEDICARE, MEDICAID ==
[~2017-04-03] MED LIST changes: +HYDR-3812 PO
--- NOTE | 2017-04-03 17:01 | Diagnostic Imaging Report ---
PROCEDURE: MRI left joint lower extremity without contrast. TECHNIQUE: Multiplanar, multisequence non contrast-enhanced MRI of the left lower extremity was accomplished. INDICATION: Fall. Left knee pain. FINDINGS: There is a moderate joint effusion. There is a Umana's cyst measuring 2 x 1.4 x 4.5 cm with adjacent free fluid suggestive of leakage. There is significant bone marrow edema involving the tibial condyles mostly along the lateral aspect with no displaced fracture or microscopic fracture line. The proximal fibers of the ACL appear to be interrupted with horizontal orientation of the distal fibers. This is suggestive of a full-thickness tear. The PCL appears intact. There is an oblique tear involving the posterior horn of the medial meniscus extending to the body of the meniscus. Anterior horn is intact. The lateral meniscus appears intact. There is thickening of the MCL with suggestion of a retracted full-thickness tear from its femoral attachment with 6 mm retraction seen. The lateral collateral ligament complex appear intact. The cartilage demonstrates mild diffuse thinning in the medial compartment. It is preserved in the lateral compartment. There is mild thinning and fissuring in the patellofemoral compartment. IMPRESSION: 1. Full-thickness tear in the proximal ACL fibers. 2. Medial meniscus tear in the posterior horn with slight extension to the body of the meniscus. 3. Full-thickness tear with 6 mm retraction along the proximal attachment of the MCL. 4. Leaking Umana's cyst. Dictated by: Dictated on workstation # [id number]
== END ==
LOC: RAD 15:56
PROVIDERS: ATTEND Orthopaedic Surgery
DX: S83.242A Other tear of medial meniscus, current injury, left knee, initial encounter (principal); S83.512A Sprain of anterior cruciate ligament of left knee, initial encounter; S83.412A Sprain of medial collateral ligament of left knee, initial encounter; M66.0 Rupture of popliteal cyst; X58.XXXA Exposure to other specified factors, initial encounter; Y99.8 Other external cause status
CPT/HCPCS: 73721

== ENCOUNTER → 2017-11-25 | Outpatient (CLI) | payer MEDICARE, MEDICAID ==
[~2017-11-25] MED LIST changes: +ACHD5005 PO; -HYDR-3812 PO
--- NOTE | 2017-11-25 20:07 | Diagnostic Imaging Report ---
INDICATION: Screening. The current study was also evaluated with a Computer Aided Detection (CAD) system. Comparison is made with prior examination from 03/11/15. 3-D tomosynthesis was also performed and reviewed. FINDINGS: There is heterogeneously dense fibroglandular tissue. There are scattered benign-type vascular calcifications. There is no dominant mass, spiculated lesion or suspicious calcification identified. The skin, nipples and axillae are unremarkable. IMPRESSION: ACR BI-RADS Category 2: Benign findings. Result letter will be mailed to the patient. Note: At least 10% of breast cancer is not imaged by mammography. Dictated by: Dictated on workstation # [id number]
== END ==
LOC: RAD 08:15
PROVIDERS: ATTEND Family Medicine
DX: Z12.31 Encounter for screening mammogram for malignant neoplasm of breast (principal)
CPT/HCPCS: 77067

== ENCOUNTER 2019-04-16 09:20 | Outpatient (CLI) | payer MEDICARE, MEDICAID ==
[~2019-04-16] VITALS: Ht 157.5 cm; Wt 60.9 kg
[~2019-04-16 09:20] MED LIST changes: +BUTA1CAP41 PO
== END 2019-04-16 09:53 | disposition home or self-care (01) ==
LOC: PREOP 09:20
PROVIDERS: ATTEND Specialist
DX: Z01.818 Encounter for other preprocedural examination (principal)

== ENCOUNTER 2019-04-22 08:20 | Day surgery (SDC) | payer MEDICARE, MEDICAID ==
[~2019-04-22] VITALS: Ht 157.5 cm; Wt 60.9 kg
[2019-04-22] MEDS ORDERED: PHENYLEPHRINE 10% OPHTH (NEO-SYN) 5 ML BTL OU PRN (09:15)
[2019-04-22] MEDS ORDERED: TROPICAMIDE 1% OPH SOLN (MYDRIACYL) 15 ML BTL OU PRN (09:15)
[2019-04-22] MEDS: TETRACAINE 0.5% OPHTH SOLN 4 ML BTL (SINGLE DOSE ONLY) OU PRN ×2 (09:20→09:32)
[2019-04-22 09:34] VITALS: BP 144/86
--- NOTE | 2019-04-22 10:07 | Ophthalmologist Pre-Op Note ---
Pre-Operative Progress Note H&P Reviewed The H&P was reviewed, patient examined and no changes noted. Date H&P Reviewed: Apr 22, 2019 Time H&P Reviewed: 10:07 Pre-Op Dx Secondary Cataract, Bilateral Eyes YAMILETH LOGAN MD Apr 22, 2019 10:07 POS
--- NOTE | 2019-04-22 10:19 | Ophthalmology Operative Report ---
YAG Capsulotomy PREOPERATIVE DIAGNOSIS: Secondary Cataract Bilateral POSTOPERATIVE DIAGNOSIS: Secondary Cataract Bilateral PROCEDURE: YAG Capsulotomy, Bilateral SURGEON: Ashutosh Logan ANESTHESIA: Topical anesthesia COMPLICATIONS: None ESTIMATED BLOOD LOSS: Minimal DESCRIPTION OF PROCEDURE: After proper informed consent was obtained, the patient's, a 68 female , received one drop of Tropicamide and one drop of Tetracaine in each eye. The patient was then placed at the YAG laser and using a power of [3.5 ] millijoules and bursts [15 ] right eye and [13 ] left eye were used to fashion a central capsulotomy. The patient tolerated the procedure well without complications. ASHUTOSH LOGAN MD Apr 22, 2019 10:19 POS
== END 2019-04-22 10:15 | disposition home or self-care (01) ==
LOC: SDC 08:20
PROVIDERS: ATTEND Specialist
DX: H26.493 Other secondary cataract, bilateral (principal)

== ENCOUNTER → 2019-12-16 | Outpatient (CLI) | payer MEDICARE, MEDICAID ==
--- NOTE | 2019-12-16 14:03 | Diagnostic Imaging Report ---
PROCEDURE: CT head without contrast. TECHNIQUE: Multiple contiguous axial images were obtained through the brain without the use of intravenous contrast. Auto Exposure Controls were utilized during the CT exam to meet ALARA standards for radiation dose reduction. INDICATION: Migraine headache for three weeks. Patient complains of right-sided head pain and right eye blurring and dizziness. COMPARISON: No prior studies are available for comparison. FINDINGS: Ventricles and sulci are within normal limits. No sulcal effacement or midline shift is identified. No acute intra-axial or extra-axial hemorrhage is detected. Cisterns are patent. Visualized paranasal sinuses are clear. IMPRESSION: Unremarkable noncontrast CT of the brain. Dictated by: Dictated on workstation # [id number]
== END ==
LOC: RAD 13:15
PROVIDERS: ATTEND Nurse Practitioner Family
DX: G43.009 Migraine without aura, not intractable, without status migrainosus (principal)
CPT/HCPCS: 70450

== ENCOUNTER 2021-01-10 05:27 | Outpatient (RCR) | payer MEDICARE, MEDICAID ==
[~2021-01-10] VITALS: Ht 157.5 cm; Wt 63.5 kg
[~2021-01-10 05:27] MED LIST changes: +CALC-823 PO; +PROP20TA5 PO
[2021-01-12] MEDS ORDERED: PANT40TA2 PO (13:46)
== END 2021-01-10 14:18 | disposition home or self-care (01) ==
LOC: PREOP 05:27
PROVIDERS: ATTEND Surgery
DX: Z01.812 Encounter for preprocedural laboratory examination (principal); K21.9 Gastro-esophageal reflux disease without esophagitis; D50.9 Iron deficiency anemia, unspecified; Z20.822 Contact with and (suspected) exposure to COVID-19
CPT/HCPCS: 87635

== ENCOUNTER 2021-01-12 11:41 | Day surgery (SDC) | payer MEDICARE, MEDICAID ==
[~2021-01-12] VITALS: Ht 157.5 cm; Wt 63.5 kg
[2021-01-12] VITALS (7 sets, daily range): BP systolic 106–159; BP diastolic 59–83
--- NOTE | 2021-01-12 12:07 | Progress Note-Pre Operative ---
Pre-Operative Progress Note H&P Reviewed The H&P was reviewed, patient examined and no changes noted. Date Seen by Provider: Jan 12, 2021 Time Seen by Provider: 12:06 Date H&P Reviewed: Jan 12, 2021 Time H&P Reviewed: 12:06 Pre-Operative Diagnosis: gerd, fe def anemia JAVAD CACERES DO Jan 12, 2021 12:07
[2021-01-12] MEDS ORDERED: HURRICAINE EXT TUBE (BENZOCAINE) XX PRN (12:15)
[2021-01-12] MEDS ORDERED: LACTATED RINGERS 1,000 ML IV STA (12:15)
[2021-01-12] MEDS ORDERED: LACTATED RINGERS 1,000 ML IV ONE (12:22)
[2021-01-12] MEDS ORDERED: DEXA4TAB PO (12:29)
[2021-01-12] MEDS ORDERED: PS30T PO (12:29)
[2021-01-12] MEDS ORDERED: PROPOFOL INJECTION 50 ML IV ONE (12:54)
[2021-01-12] MEDS ORDERED: MIDAZOLAM 2 MG/2 ML (VERSED) VIAL ONE (12:54)
--- NOTE | 2021-01-12 13:33 | Anesthesia-General Post-Op ---
MAC Patient Condition Mental Status/LOC: Same as Preop Cardiovascular: Satisfactory Nausea/Vomiting: Absent Respiratory: Satisfactory Pain: Controlled Complications: Absent Post Op Complications Complications None Follow Up Care/Instructions Patient Instructions None needed. Anesthesiology Discharge Order Discharge Order Patient is doing well, no complaints, stable vital signs, no apparent adverse anesthesia problems. No complications reported per nursing. JANELLE CHAWLA CRNA Jan 12, 2021 13:32
[2021-01-12] MEDS ORDERED: PANT40TA2 PO (13:46)
--- NOTE | 2021-01-12 13:47 | Discharge Inst-Simple/Standard ---
Discharge Inst-Standard Discharge Medications New, Converted or Re-Newed RX: Transmitted to Pharmacy Patient Instructions/Follow Up Plan of Care/Instructions/FU: 3 weeks Edna Activity as Tolerated: Yes Discharge Diet: Regular Diet JAVAD CACERES DO Jan 12, 2021 13:47
--- NOTE | 2021-01-12 13:49 | Progress Note-Post Operative ---
Post-Operative Progess Note Surgeon (s)/Hand Mold Maker (s) Surgeon JAVAD CACERES DO Hand Mold Maker: na Pre-Operative Diagnosis gerd, fe def anemia Post-Operative Diagnosis hiatal hernia, reflux esophagitis, diverticulosis Procedure & Operative Findings Date of Procedure 01/12/21 Procedure Performed/Findings egd c biopsies, colonoscopy Anesthesia Type per survival specialist Estimated Blood Loss Estimated blood loss (mL): none Specimens/Packing Specimens Removed ge, mid esophagus, JAVAD CACERES DO Jan 12, 2021 13:48
--- NOTE | 2021-01-12 15:31 | OPERATIVE REPORT ---
DATE OF SERVICE: 01/12/2021 PREOPERATIVE DIAGNOSES: Gastroesophageal reflux disease, iron deficiency anemia. POSTOPERATIVE DIAGNOSES: Hiatal hernia, reflux esophagitis, and diverticulosis. PROCEDURES PERFORMED: EGD with biopsies, colonoscopy. SURGEON: Javad Bishop DO. ANESTHESIA: Per [employer]. ESTIMATED BLOOD LOSS: None. COMPLICATIONS: None. SPECIMENS: GE junction midesophagus. INDICATION FOR PROCEDURE: The patient is a 70-year-old female with iron deficiency anemia and reflux. She understands the risks and benefits of the procedure and wished to proceed with procedure. Consent was signed in the chart. DESCRIPTION OF PROCEDURE: The patient was taken to the endoscopy suite and placed in a left lateral recumbent position. Timeout was performed. Scope was inserted in the mouth, down the esophagus, stomach and into the duodenum without difficulty. No polyps, masses or ulcerations within the duodenum. Scope was slowly retracted back into the stomach where it was further insufflated. No polyps, masses or ulcerations. Scope was retroflexed noting a hiatal hernia. Scope was returned to its normal position, slowly withdrawn to distal esophagus, which noted to have changes of reflux esophagitis. Biopsy of GE junction and mid esophagus were obtained. Scope was then slowly retracted back until completely removed noting no other pathology. Digital rectal exam was performed. No palpable polyps, masses or ulcerations. Scope was inserted in the rectum, advanced all the way to the cecum with minimal difficulty. Prep was adequate. Scope was slowly retracted back. No polyps, masses or ulcerations within the cecum, ascending, transverse, descending and sigmoid colon. Throughout the sigmoid colon, diverticulosis was present. Scope was then slowly retracted back to the rectum, where it was also retroflexed noting no other pathology. Scope was returned to its normal position, slowly withdrawn until completely removed. The patient tolerated the procedure well without any complications. She was taken to the recovery room in stable condition. RECOMMENDATIONS: The patient will need repeat colonoscopy on as needed basis. We will start her on Protonix 40 mg daily to see if this does help improve her symptoms. Further recommendations pending biopsy results. We would also consider capsule endoscopy if she continues to be anemic. Job ID: [id number] DocumentID: [id number] Dictated Date: 01/12/2021 13:51:43 Fur Blower Date: 01/12/2021 15:30:57 Dictated By: JAVAD BISHOP DO [facility]
== END 2021-01-12 14:04 | disposition home or self-care (01) ==
LOC: ENDO 11:41
PROVIDERS: ATTEND Surgery
DX: K21.00 Gastro-esophageal reflux disease with esophagitis, without bleeding (principal); K57.30 Diverticulosis of large intestine without perforation or abscess without bleeding; D50.9 Iron deficiency anemia, unspecified; K44.9 Diaphragmatic hernia without obstruction or gangrene; I10 Essential (primary) hypertension; Z79.899 Other long term (current) drug therapy
CPT/HCPCS: 88305; 88312

== ENCOUNTER → 2021-02-24 | Outpatient (CLI) | payer MEDICARE, MEDICAID ==
[~2021-02-24] MED LIST changes: +DEXA4TAB PO; +PS30T PO
[2021-02-24 13:52] LABS: BASOPHILS # (AUTO) 0.1 10^3/uL (0.0-0.1); BASOPHILS % (AUTO) 1 % (0-10); EOSINOPHILS # (AUTO) 0.2 10^3/uL (0.0-0.3); EOSINOPHILS % (AUTO) 2 % (0-10); HEMATOCRIT 40 % (35-52); HEMOGLOBIN 12.7 g/dL (11.5-16.0); LYMPHOCYTES # (AUTO) 1.8 10^3/uL (1.0-4.0); LYMPHOCYTES % (AUTO) 20 % (12-44); MEAN CORPUSCULAR HEMOGLOBIN 28 pg (25-34); MEAN CORPUSCULAR HGB CONC 32 g/dL (32-36); MEAN CORPUSCULAR VOLUME 88 fL (80-99); MEAN PLATELET VOLUME 9.6 fL (9.0-12.2); MONOCYTES # (AUTO) 0.6 10^3/uL (0.0-1.0); MONOCYTES % (AUTO) 6 % (0-12); NEUTROPHILS # (AUTO) 6.5 10^3/uL (1.8-7.8); NEUTROPHILS % (AUTO) 71 % (42-75); PLATELET COUNT 327 10^3/uL (130-400); WHITE BLOOD COUNT 9.1 10^3/uL (4.3-11.0)
== END ==
LOC: LAB 13:25
PROVIDERS: ATTEND Surgery
DX: D64.9 Anemia, unspecified (principal)
CPT/HCPCS: 36415; 85025